=== PATIENT | male | born 1970 | race African-American/Black ===

== ENCOUNTER 2018-12-19 13:37 | Inpatient (IN) | payer OTHER ==
[2018-12-19 22:42] VITALS: BMI 34.0
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
[2018-12-19] MEDS ORDERED: MAGNESIUM HYDROX 2400MG/30ML ORAL SUSPENSION 30 ML CUP PO PRN (23:12)
[2018-12-19] MEDS ORDERED: MENTHOL/PHENOL 1 EACH UD MM PRN (23:12)
[2018-12-19] MEDS ORDERED: IBUPROFEN 400 MG TABLET (FP) PO PRN (23:12)
[2018-12-19] MEDS ORDERED: NICOTINE POLACRILEX 2 MG GUM BUC PRN (23:12)
[2018-12-19] MEDS ORDERED: guaiFENesin 200 MG/10 ML 10 ML UNIT-DOSE CUPS PO PRN (23:12)
[2018-12-19] MEDS ORDERED: LOPERAMIDE HCL 2 MG CAPSULE PO PRN (23:12)
[2018-12-19] MEDS ORDERED: MAGNESIUM CITRATE 300 ML BOTTLE PO PRN (23:12)
[2018-12-19] MEDS ORDERED: P-EPHED 60MG/TRIPROLIDI 2.5MG TABLET PO PRN (23:12)
[2018-12-20] MEDS ORDERED: TUBERCULIN PPD 5 TU/0.1ML VIAL ID ONE (00:36)
[2018-12-20] MEDS: MELATONIN 5 MG TABLETS PO PRN ×2 (00:50→21:17)
[2018-12-20] MEDS: ACETAMINOPHEN 325 MG TABLET (FP) PO PRN ×2 (00:50→21:17)
[2018-12-20] MEDS: metFORMIN HCL 500 MG TABLET (FP) PO SCH ×2 (06:13→16:53)
[2018-12-20] MEDS ORDERED: CHROMIUM PICOLINATE PO SCH (10:00)
[2018-12-20] MEDS ORDERED: [UNRECOGNIZED DRUG - OTHER] PO SCH (10:00)
[2018-12-20] MEDS ORDERED: ESOMEPRAZOLE STRONTIUM PO SCH (10:00)
[2018-12-20] MEDS ORDERED: MULTIPLE VITAMINS PO SCH (10:00)
[2018-12-20] MEDS ORDERED: INULIN PO SCH (10:00)
[2018-12-20] MEDS: PRENATAL VITAMINS W/ FOLIC ACID TABLET (FP) PO SCH (10:20)
[2018-12-20] MEDS: NICOTINE 21 MG/24 HOURS TOPICAL PATCH TD SCH (10:20)
--- NOTE | 2018-12-20 10:42 | EKG ---
Test Reason : Blood Pressure : / mmHG Vent. Rate : 066 BPM Atrial Rate : 066 BPM P-R Int : 180 ms QRS Dur : 104 ms QT Int : 402 ms P-R-T Axes : 061 -15 029 degrees QTc Int : 421 ms NORMAL SINUS RHYTHM WITH SINUS ARRHYTHMIA SEPTAL INFARCT , AGE UNDETERMINED ABNORMAL ECG NO PREVIOUS ECGS AVAILABLE Confirmed by TI WU, BRYAN ([id number]) on 12/20/2018 10:42:25 AM Referred By: MAURO SERNA Confirmed By:BRYAN LUKE MD
[2018-12-20 12:29] LABS: HEMATOCRIT 43.9 % (35.4-49); HEMOGLOBIN 14.5 GM/dL (11.7-16.9); MCH 29.3 pg (25.7-33.7); MEAN CELL VOLUME 88.5 fl (80-96); MEAN PLT VOLUME 8.8 fl (7.5-11.1); PLATELET COUNT 250 K/MM3 (134-434); RBC 4.95 M/mm3 (4.00-5.60); RDW 14.5 % (11.9-15.9)
[2018-12-20 12:35] LABS: ALBUMIN 3.6 g/dl (3.4-5.0); BILIRUBIN,TOTAL 0.5 mg/dL (0.2-1); BLOOD UREA NITROGEN 17.4 mg/dL (7-18); CREATININE 0.9 mg/dL (0.55-1.3); POTASSIUM 4.1 mmol/L (3.5-5.1); TOT PROT 6.3 g/dl (6.4-8.2)
--- NOTE | 2018-12-20 16:12 | PN ---
[facility] Progress Note Note: Pt admitted to rehab yesterday for jonny. C/o discomfort to right ear and wants to be checked. also wants claribel use his silicone ear plugs for noise reduction. Vital Signs - 24 hr 12/19/18 12/20/18 12/20/18 21:42 00:30 06:16 Temperature 98.2 F 97.8 F Pulse Rate 73 76 Respiratory 16 18 19 Rate Blood Pressure 137/92 127/75 12/20/18 06:30 Temperature Pulse Rate Respiratory 18 Rate Blood Pressure Ears exam:No redness or swelling, TMs intact A/P exam wnl Plan:pt may use own ear plugs as needed
[2018-12-20] MEDS: THIAMINE HCL 100 MG TABLET (FP) PO SCH (21:17)
[2018-12-20] MEDS: ATORVASTATIN CA 40 MG TABLET (FP) PO SCH (21:17)
[2018-12-20 21:55] LABS: PH,URINE 8.5 (5.0-8.0); URINE APPEARANCE CLEAR; URINE BILIRUBIN NEGATIVE (NEGATIVE); URINE COLOR YELLOW; URINE GLUCOSE (UA) NEGATIVE (NEGATIVE); URINE KETONE NEGATIVE (NEGATIVE); URINE LEUK ESTERASE NEGATIVE (NEGATIVE); URINE NITRITE NEGATIVE (NEGATIVE); URINE PROTEIN NEGATIVE (NEGATIVE); URINE UROBILINOGEN 0.2 mg/dL (0.2-1.0)
[2018-12-21] MEDS: metFORMIN HCL 500 MG TABLET (FP) PO SCH ×2 (06:31→16:57)
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
[2018-12-21] MEDS: ACETAMINOPHEN 325 MG TABLET (FP) PO PRN ×2 (09:25→21:23)
[2018-12-21] MEDS: NICOTINE 21 MG/24 HOURS TOPICAL PATCH TD SCH (09:26)
[2018-12-21] MEDS: PRENATAL VITAMINS W/ FOLIC ACID TABLET (FP) PO SCH (09:26)
[2018-12-21] MEDS: MELATONIN 5 MG TABLETS PO PRN (21:21)
[2018-12-21] MEDS: THIAMINE HCL 100 MG TABLET (FP) PO SCH (21:21)
[2018-12-21] MEDS: ATORVASTATIN CA 40 MG TABLET (FP) PO SCH (21:21)
[2018-12-22] MEDS: metFORMIN HCL 500 MG TABLET (FP) PO SCH ×2 (06:25→16:54)
[2018-12-22] MEDS: NICOTINE 21 MG/24 HOURS TOPICAL PATCH TD SCH (10:23)
[2018-12-22] MEDS: ACETAMINOPHEN 325 MG TABLET (FP) PO PRN (10:24)
[2018-12-22] MEDS: PRENATAL VITAMINS W/ FOLIC ACID TABLET (FP) PO SCH (10:24)
[2018-12-22] MEDS ORDERED: METHOCARBAMOL 500 MG TABLET PO PRN (11:43)
--- NOTE | 2018-12-22 13:24 | PN ---
[facility] Progress Note Note: Pt has a home Rx bottle of Naproxen 500 mg po daily as needed which he says he takes for his gout. Reports no allergy to Naproxen hut only got hives from ibuprofen. Pt requesting to restart his Naproxen as prescribed by his doctor. Discussed pt's request and findings with [email or web address] pharmacist, Flori marquez with patient in [place]. Pt reports he has a prescribing PMD, Dr. Manju Mayorga in [facility]. Ph#: on the medication bottle with 3 tablets of medication left in bottle. Rx was filled on 12/15/18 with #14 tablets at pharmacy. pt is alert o x 3. NAD. oob ambulating with steady gait and participating in unit groups and activities. Vital Signs - 24 hr 12/22/18 12/22/18 12/22/18 00:30 03:30 07:06 Temperature 97.8 F Pulse Rate 71 Respiratory 18 18 18 Rate Blood Pressure 124/84 12/22/18 10:00 Temperature Pulse Rate 86 Respiratory Rate Blood Pressure 124/68 Laboratory Tests 12/19/18 12/20/18 12/20/18 23:36 06:11 08:10 WBC 13.0 H RBC 4.95 Hgb 14.5 Hct 43.9 MCV 88.5 MCH 29.3 MCHC 33.0 RDW 14.5 Plt Count 250 MPV 8.8 Sodium Potassium Chloride Carbon Dioxide Anion Gap BUN Creatinine Est GFR (CKD-EPI)AfAm Est GFR (CKD-EPI)NonAf POC Glucometer 92 80 Random Glucose Calcium Total Bilirubin AST ALT Alkaline Phosphatase Total Protein Albumin Urine Color Urine Appearance Urine pH Ur Specific [place] Urine Protein Urine Glucose (UA) Urine Ketones Urine Blood Urine Nitrite Urine Bilirubin Urine Urobilinogen Ur Leukocyte Esterase RPR Titer Hep C Ab Diagnostic 12/20/18 12/20/18 12/20/18 08:10 08:10 08:10 WBC RBC Hgb Hct MCV MCH MCHC RDW Plt Count MPV Sodium 140 Potassium 4.1 Chloride 106 Carbon Dioxide 29 Anion Gap 6 L BUN 17.4 Creatinine 0.9 Est GFR (CKD-EPI)AfAm 116.65 Est GFR (CKD-EPI)NonAf 100.64 POC Glucometer Random Glucose 117 H Calcium 9.0 Total Bilirubin 0.5 AST 43 H ALT 76 H Alkaline Phosphatase 113 Total Protein 6.3 L Albumin 3.6 Urine Color Urine Appearance Urine pH Ur Specific [place]entry Urine Protein Urine Glucose (UA) Urine Ketones Urine Blood Urine Nitrite Urine Bilirubin Urine Urobilinogen Ur Leukocyte Esterase RPR Titer Nonreactive Hep C Ab Diagnostic <0.1 12/20/18 12/20/18 12/21/18 16:52 21:35 06:30 WBC RBC Hgb Hct MCV MCH MCHC RDW Plt Count MPV Sodium Potassium Chloride Carbon Dioxide Anion Gap BUN Creatinine Est GFR (CKD-EPI)AfAm Est GFR (CKD-EPI)NonAf POC Glucometer 79 106 Random Glucose Calcium Total Bilirubin AST ALT Alkaline Phosphatase Total Protein Albumin Urine Color Yellow Urine Appearance Clear Urine pH 8.5 H Ur Specific [place] 1.019 Urine Protein Negative Urine Glucose (UA) Negative Urine Ketones Negative Urine Blood Negative Urine Nitrite Negative Urine Bilirubin Negative Urine Urobilinogen 0.2 Ur Leukocyte Esterase Negative RPR Titer Hep C Ab Diagnostic 12/21/18 12/22/18 16:57 06:25 WBC RBC Hgb Hct MCV MCH MCHC RDW Plt Count MPV Sodium Potassium Chloride Carbon Dioxide Anion Gap BUN Creatinine Est GFR (CKD-EPI)AfAm Est GFR (CKD-EPI)NonAf POC Glucometer 93 94 Random Glucose Calcium Total Bilirubin AST ALT Alkaline Phosphatase Total Protein Albumin Urine Color Urine Appearance Urine pH Ur Specific [place]entry Urine Protein Urine Glucose (UA) Urine Ketones Urine Blood Urine Nitrite Urine Bilirubin Urine Urobilinogen Ur Leukocyte Esterase RPR Titer Hep C Ab Diagnostic A/P hx of Gout Restart Naproxen 500 mg po daily prn
[2018-12-22] MEDS ORDERED: METHOCARBAMOL 500 MG TABLET PO SCH (14:00)
[2018-12-22] MEDS: THIAMINE HCL 100 MG TABLET (FP) PO SCH (21:14)
[2018-12-22] MEDS: ATORVASTATIN CA 40 MG TABLET (FP) PO SCH (21:14)
[2018-12-22] MEDS: MELATONIN 5 MG TABLETS PO PRN (21:15)
[2018-12-22] MEDS: NAPROXEN 500 MG TABLET (FP) PO PRN (21:15)
[2018-12-23] MEDS: metFORMIN HCL 500 MG TABLET (FP) PO SCH ×2 (06:12→16:55)
[2018-12-23] MEDS: NAPROXEN 500 MG TABLET (FP) PO PRN (06:15)
[2018-12-23] MEDS: NICOTINE 21 MG/24 HOURS TOPICAL PATCH TD SCH (10:17)
[2018-12-23] MEDS: PRENATAL VITAMINS W/ FOLIC ACID TABLET (FP) PO SCH (10:17)
[2018-12-23] MEDS: MELATONIN 5 MG TABLETS PO PRN (21:14)
[2018-12-23] MEDS: THIAMINE HCL 100 MG TABLET (FP) PO SCH (21:14)
[2018-12-23] MEDS: ATORVASTATIN CA 40 MG TABLET (FP) PO SCH (21:14)
[2018-12-24] MEDS: metFORMIN HCL 500 MG TABLET (FP) PO SCH ×2 (06:09→17:32)
[2018-12-24] MEDS: NICOTINE 21 MG/24 HOURS TOPICAL PATCH TD SCH (09:57)
[2018-12-24] MEDS: NAPROXEN 500 MG TABLET (FP) PO PRN (09:58)
[2018-12-24] MEDS: PRENATAL VITAMINS W/ FOLIC ACID TABLET (FP) PO SCH (09:58)
[2018-12-24] MEDS: ACETAMINOPHEN 325 MG TABLET (FP) PO PRN ×2 (17:32→22:52)
[2018-12-24] MEDS: ATORVASTATIN CA 40 MG TABLET (FP) PO SCH (22:53)
[2018-12-24] MEDS: MELATONIN 5 MG TABLETS PO PRN (22:53)
[2018-12-24] MEDS: THIAMINE HCL 100 MG TABLET (FP) PO SCH (22:53)
[2018-12-25] MEDS: ACETAMINOPHEN 325 MG TABLET (FP) PO PRN (06:11)
[2018-12-25] MEDS: metFORMIN HCL 500 MG TABLET (FP) PO SCH ×2 (06:13→16:42)
[2018-12-25] MEDS: PRENATAL VITAMINS W/ FOLIC ACID TABLET (FP) PO SCH (10:27)
[2018-12-25] MEDS: NAPROXEN 500 MG TABLET (FP) PO PRN ×2 (10:30→22:05)
[2018-12-25] MEDS: NICOTINE 21 MG/24 HOURS TOPICAL PATCH TD SCH (10:30)
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
[2018-12-25] MEDS: THIAMINE HCL 100 MG TABLET (FP) PO SCH (21:21)
[2018-12-25] MEDS: ATORVASTATIN CA 40 MG TABLET (FP) PO SCH (21:21)
[2018-12-25] MEDS: MELATONIN 5 MG TABLETS PO PRN (21:22)
[2018-12-25] MEDS: BENZOCAINE 20 % GEL TUBE MM PRN (22:05)
[2018-12-26] MEDS: metFORMIN HCL 500 MG TABLET (FP) PO SCH ×2 (06:56→16:43)
[2018-12-26] MEDS: PRENATAL VITAMINS W/ FOLIC ACID TABLET (FP) PO SCH (10:29)
[2018-12-26] MEDS: NICOTINE 21 MG/24 HOURS TOPICAL PATCH TD SCH (10:29)
[2018-12-26] MEDS: NAPROXEN 500 MG TABLET (FP) PO PRN ×2 (10:30→21:31)
[2018-12-26] MEDS: THIAMINE HCL 100 MG TABLET (FP) PO SCH (21:31)
[2018-12-26] MEDS: MELATONIN 5 MG TABLETS PO PRN (21:31)
[2018-12-26] MEDS: ATORVASTATIN CA 40 MG TABLET (FP) PO SCH (21:31)
[2018-12-27] MEDS: BENZOCAINE 20 % GEL TUBE MM PRN (04:07)
[2018-12-27] MEDS: metFORMIN HCL 500 MG TABLET (FP) PO SCH ×2 (07:25→16:41)
[2018-12-27] MEDS: NICOTINE 21 MG/24 HOURS TOPICAL PATCH TD SCH (10:08)
[2018-12-27] MEDS: PRENATAL VITAMINS W/ FOLIC ACID TABLET (FP) PO SCH (10:08)
[2018-12-27] MEDS: NAPROXEN 500 MG TABLET (FP) PO PRN ×2 (10:09→21:24)
[2018-12-27] MEDS: ATORVASTATIN CA 40 MG TABLET (FP) PO SCH (21:24)
[2018-12-27] MEDS: MELATONIN 5 MG TABLETS PO PRN (21:24)
[2018-12-27] MEDS: THIAMINE HCL 100 MG TABLET (FP) PO SCH (21:24)
[2018-12-28] MEDS: ACETAMINOPHEN 325 MG TABLET (FP) PO PRN ×3 (01:33→19:02)
[2018-12-28] MEDS: metFORMIN HCL 500 MG TABLET (FP) PO SCH ×2 (06:10→16:36)
[2018-12-28] MEDS: NICOTINE 21 MG/24 HOURS TOPICAL PATCH TD SCH (10:06)
[2018-12-28] MEDS: PRENATAL VITAMINS W/ FOLIC ACID TABLET (FP) PO SCH (10:06)
[2018-12-28] MEDS: NAPROXEN 500 MG TABLET (FP) PO PRN ×2 (10:07→21:26)
[2018-12-28] MEDS: MAG HYDROX/AL HYDROX/SIMETH 30 ML UNIT-DOSE CUP PO PRN (19:01)
[2018-12-28] MEDS: THIAMINE HCL 100 MG TABLET (FP) PO SCH (21:26)
[2018-12-28] MEDS: ATORVASTATIN CA 40 MG TABLET (FP) PO SCH (21:26)
[2018-12-28] MEDS: MELATONIN 5 MG TABLETS PO PRN (21:27)
[2018-12-29] MEDS: metFORMIN HCL 500 MG TABLET (FP) PO SCH ×2 (06:30→16:44)
[2018-12-29] MEDS: ACETAMINOPHEN 325 MG TABLET (FP) PO PRN (06:31)
[2018-12-29] MEDS: NICOTINE 21 MG/24 HOURS TOPICAL PATCH TD SCH (10:41)
[2018-12-29] MEDS: NAPROXEN 500 MG TABLET (FP) PO PRN ×2 (10:42→21:25)
[2018-12-29] MEDS: PRENATAL VITAMINS W/ FOLIC ACID TABLET (FP) PO SCH (10:42)
[2018-12-29] MEDS: ATORVASTATIN CA 40 MG TABLET (FP) PO SCH (21:24)
[2018-12-29] MEDS: THIAMINE HCL 100 MG TABLET (FP) PO SCH (21:24)
--- NOTE | 2018-12-30 03:35 | PN ---
[facility] Progress Note Note: ASKED TO SEE PATIENT FOR BROKEN EAR PLUGS IN BOTH EARS. CLIENT C/O ELY SHOSHONE DUE TO HAVING PIECES OF EAR PLUGS STILL IN HIS EAR AFTER ATTEMPTING TO PULL THEM OUT A FEW MINUTES AGO. CLIENT SHOWS PROVIDER 2 PIECES OF WHITE JELL LIKE OBJECTS FROM WHAT WAS PULLED OUT. DENIES PAIN, HEADACHE, DIZZINESS. CLIENT IS AWAKE/ ALERT NAD EARS- BOTH EARS NOTED WITH SOFT WHITE JELL LIKE SUBSTANCE ( C/W WHAT CLIENT PRESENTED TO OUTPATIENT DIETITIAN) OCCLUDING BOTH CANALS A/P FOREIGN OBJECT TO BOTH EAR CANALS CASE D/W DR. CHANDRA FROM [facility] TRANSFER CLIENT TO [facility]
[2018-12-30] MEDS: ACETAMINOPHEN 325 MG TABLET (FP) PO PRN (07:21)
[2018-12-30] MEDS: metFORMIN HCL 500 MG TABLET (FP) PO SCH ×2 (07:23→16:38)
[2018-12-30] MEDS: NICOTINE 21 MG/24 HOURS TOPICAL PATCH TD SCH (10:13)
[2018-12-30] MEDS: PRENATAL VITAMINS W/ FOLIC ACID TABLET (FP) PO SCH (10:13)
[2018-12-30] MEDS: NAPROXEN 500 MG TABLET (FP) PO PRN ×2 (10:14→21:28)
[2018-12-30] MEDS: MAG HYDROX/AL HYDROX/SIMETH 30 ML UNIT-DOSE CUP PO PRN (12:20)
[2018-12-30] MEDS: THIAMINE HCL 100 MG TABLET (FP) PO SCH (21:27)
[2018-12-30] MEDS: ATORVASTATIN CA 40 MG TABLET (FP) PO SCH (21:27)
[2018-12-31] MEDS: ACETAMINOPHEN 325 MG TABLET (FP) PO PRN (06:26)
[2018-12-31] MEDS: metFORMIN HCL 500 MG TABLET (FP) PO SCH ×2 (06:27→16:52)
[2018-12-31] MEDS: PRENATAL VITAMINS W/ FOLIC ACID TABLET (FP) PO SCH (10:15)
[2018-12-31] MEDS: NAPROXEN 500 MG TABLET (FP) PO PRN ×2 (10:16→21:12)
[2018-12-31] MEDS: NICOTINE 21 MG/24 HOURS TOPICAL PATCH TD SCH (10:16)
[2018-12-31] MEDS: ATORVASTATIN CA 40 MG TABLET (FP) PO SCH (21:11)
[2018-12-31] MEDS: THIAMINE HCL 100 MG TABLET (FP) PO SCH (21:11)
[2019-01-01] MEDS: metFORMIN HCL 500 MG TABLET (FP) PO SCH ×2 (07:14→16:41)
[2019-01-01] MEDS: PRENATAL VITAMINS W/ FOLIC ACID TABLET (FP) PO SCH (10:04)
[2019-01-01] MEDS: NICOTINE 21 MG/24 HOURS TOPICAL PATCH TD SCH (10:04)
[2019-01-01] MEDS: NAPROXEN 500 MG TABLET (FP) PO PRN ×2 (10:04→21:24)
--- NOTE | 2019-01-01 11:45 | PN ---
[facility] Progress Note Note: This ticket writer followed up with the Esther Barrera recommendation for patient to follow up care with ENT at Singh Estrada MD [address] , [place], [place] but unable to make appointment with practice due to pt's insurance not accepted. Pt was taken to the Er for removal of foreign object from both ears but has been recommended upon discharge to follow up with ENT for total removal of any pieces that might be left in. Pt reports he had inserted the plugs wrongly stating " "it is my fault. I was putting them in the canal in a wrong way. Now i know how". Pt states he is able to follow up by himself after discharge from rehab at [facility]. Pt states he has no symptoms of hearing deficits, buzzing,ringing,pain, dizziness, nausea,or any discomfort at this time. Pt responding to calls and communicating normally without hearing difficulty. Vital Signs - 24 hr 01/01/19 01/01/19 01/01/19 00:30 03:30 06:52 Temperature 98.1 F Pulse Rate 68 Respiratory 18 18 20 Rate Blood Pressure 129/88 Oob ambulating with steady gait Nad A/P Foreign Object in Ears D/w pt the need to follow up with ENT per Esther recommendation. App[facility] be made with: [facility] [address] [place] [address]
[2019-01-01] MEDS: ACETAMINOPHEN 325 MG TABLET (FP) PO PRN (17:20)
[2019-01-01] MEDS: MELATONIN 5 MG TABLETS PO PRN (21:24)
[2019-01-01] MEDS: THIAMINE HCL 100 MG TABLET (FP) PO SCH (21:24)
[2019-01-01] MEDS: ATORVASTATIN CA 40 MG TABLET (FP) PO SCH (21:24)
[2019-01-02] MEDS: ACETAMINOPHEN 325 MG TABLET (FP) PO PRN ×3 (03:14→16:48)
[2019-01-02] MEDS: metFORMIN HCL 500 MG TABLET (FP) PO SCH ×2 (06:57→16:47)
[2019-01-02] MEDS: NAPROXEN 500 MG TABLET (FP) PO PRN ×2 (11:01→21:21)
[2019-01-02] MEDS: PRENATAL VITAMINS W/ FOLIC ACID TABLET (FP) PO SCH (11:01)
[2019-01-02] MEDS: NICOTINE 21 MG/24 HOURS TOPICAL PATCH TD SCH (11:01)
[2019-01-02] MEDS: ATORVASTATIN CA 40 MG TABLET (FP) PO SCH (21:21)
[2019-01-02] MEDS: THIAMINE HCL 100 MG TABLET (FP) PO SCH (21:22)
[2019-01-02] MEDS: MELATONIN 5 MG TABLETS PO PRN (21:22)
[2019-01-03] MEDS: ACETAMINOPHEN 325 MG TABLET (FP) PO PRN (05:36)
[2019-01-03] MEDS: metFORMIN HCL 500 MG TABLET (FP) PO SCH ×2 (06:32→16:29)
[2019-01-03] MEDS: PRENATAL VITAMINS W/ FOLIC ACID TABLET (FP) PO SCH (10:06)
[2019-01-03] MEDS: NICOTINE 21 MG/24 HOURS TOPICAL PATCH TD SCH (10:06)
[2019-01-03] MEDS: NAPROXEN 500 MG TABLET (FP) PO PRN ×2 (10:06→21:21)
[2019-01-03] MEDS: ATORVASTATIN CA 40 MG TABLET (FP) PO SCH (21:21)
[2019-01-03] MEDS: THIAMINE HCL 100 MG TABLET (FP) PO SCH (21:21)
[2019-01-03] MEDS: MELATONIN 5 MG TABLETS PO PRN (21:22)
[2019-01-04] MEDS: metFORMIN HCL 500 MG TABLET (FP) PO SCH ×2 (06:12→16:27)
[2019-01-04] MEDS: PRENATAL VITAMINS W/ FOLIC ACID TABLET (FP) PO SCH (10:05)
[2019-01-04] MEDS: NICOTINE 21 MG/24 HOURS TOPICAL PATCH TD SCH (10:05)
[2019-01-04] MEDS: NAPROXEN 500 MG TABLET (FP) PO PRN ×2 (10:05→21:16)
[2019-01-04] MEDS: ATORVASTATIN CA 40 MG TABLET (FP) PO SCH (21:15)
[2019-01-04] MEDS: THIAMINE HCL 100 MG TABLET (FP) PO SCH (21:15)
[2019-01-04] MEDS: MELATONIN 5 MG TABLETS PO PRN (21:15)
[2019-01-05] MEDS: metFORMIN HCL 500 MG TABLET (FP) PO SCH ×2 (06:11→16:49)
[2019-01-05] MEDS: NAPROXEN 500 MG TABLET (FP) PO PRN ×2 (10:17→21:21)
[2019-01-05] MEDS: PRENATAL VITAMINS W/ FOLIC ACID TABLET (FP) PO SCH (10:17)
[2019-01-05] MEDS: NICOTINE 14 MG/24 HOURS TOPICAL PATCH TD SCH (10:18)
[2019-01-05] MEDS: ATORVASTATIN CA 40 MG TABLET (FP) PO SCH (21:20)
[2019-01-05] MEDS: MELATONIN 5 MG TABLETS PO PRN (21:21)
[2019-01-05] MEDS: THIAMINE HCL 100 MG TABLET (FP) PO SCH (21:21)
[2019-01-06] MEDS: metFORMIN HCL 500 MG TABLET (FP) PO SCH ×2 (06:35→16:43)
[2019-01-06] MEDS: PRENATAL VITAMINS W/ FOLIC ACID TABLET (FP) PO SCH (10:48)
[2019-01-06] MEDS: NICOTINE 14 MG/24 HOURS TOPICAL PATCH TD SCH (10:48)
[2019-01-06] MEDS: NAPROXEN 500 MG TABLET (FP) PO PRN ×2 (10:49→21:45)
[2019-01-06] MEDS: THIAMINE HCL 100 MG TABLET (FP) PO SCH (21:43)
[2019-01-06] MEDS: MELATONIN 5 MG TABLETS PO PRN (21:44)
[2019-01-06] MEDS: ATORVASTATIN CA 40 MG TABLET (FP) PO SCH (21:46)
[2019-01-07] MEDS: ACETAMINOPHEN 325 MG TABLET (FP) PO PRN ×3 (02:47→19:55)
[2019-01-07] MEDS: metFORMIN HCL 500 MG TABLET (FP) PO SCH ×2 (06:25→16:51)
[2019-01-07] MEDS: PRENATAL VITAMINS W/ FOLIC ACID TABLET (FP) PO SCH (09:55)
[2019-01-07] MEDS: NICOTINE 14 MG/24 HOURS TOPICAL PATCH TD SCH (09:55)
[2019-01-07] MEDS: NAPROXEN 500 MG TABLET (FP) PO PRN ×2 (09:57→21:30)
[2019-01-07] MEDS: THIAMINE HCL 100 MG TABLET (FP) PO SCH (21:29)
[2019-01-07] MEDS: ATORVASTATIN CA 40 MG TABLET (FP) PO SCH (21:29)
[2019-01-07] MEDS: MELATONIN 5 MG TABLETS PO PRN (21:29)
[2019-01-08] MEDS: ACETAMINOPHEN 325 MG TABLET (FP) PO PRN (05:46)
[2019-01-08] MEDS: metFORMIN HCL 500 MG TABLET (FP) PO SCH ×2 (06:59→16:41)
[2019-01-08] MEDS: PRENATAL VITAMINS W/ FOLIC ACID TABLET (FP) PO SCH (10:00)
[2019-01-08] MEDS: NAPROXEN 500 MG TABLET (FP) PO PRN ×2 (10:00→21:16)
[2019-01-08] MEDS: NICOTINE 14 MG/24 HOURS TOPICAL PATCH TD SCH (10:00)
[2019-01-08] MEDS: THIAMINE HCL 100 MG TABLET (FP) PO SCH (21:16)
[2019-01-08] MEDS: ATORVASTATIN CA 40 MG TABLET (FP) PO SCH (21:16)
[2019-01-08] MEDS: MELATONIN 5 MG TABLETS PO PRN (21:16)
[2019-01-09] MEDS: metFORMIN HCL 500 MG TABLET (FP) PO SCH ×2 (06:30→16:45)
[2019-01-09] MEDS: PRENATAL VITAMINS W/ FOLIC ACID TABLET (FP) PO SCH (10:11)
[2019-01-09] MEDS: NICOTINE 14 MG/24 HOURS TOPICAL PATCH TD SCH (10:11)
[2019-01-09] MEDS: NAPROXEN 500 MG TABLET (FP) PO PRN ×2 (10:11→21:15)
[2019-01-09] MEDS: ATORVASTATIN CA 40 MG TABLET (FP) PO SCH (21:13)
[2019-01-09] MEDS: MELATONIN 5 MG TABLETS PO PRN (21:13)
[2019-01-09] MEDS: THIAMINE HCL 100 MG TABLET (FP) PO SCH (21:13)
[2019-01-10] MEDS: metFORMIN HCL 500 MG TABLET (FP) PO SCH ×2 (06:08→16:50)
[2019-01-10] MEDS: NAPROXEN 500 MG TABLET (FP) PO PRN ×2 (10:27→21:20)
[2019-01-10] MEDS: PRENATAL VITAMINS W/ FOLIC ACID TABLET (FP) PO SCH (10:27)
[2019-01-10] MEDS ORDERED: NICOTINE 7 MG/24 HOURS TOPICAL PATCH TD ONE (11:00)
[2019-01-10] MEDS: NICOTINE 14 MG/24 HOURS TOPICAL PATCH TD SCH (13:06)
--- NOTE | 2019-01-10 15:35 | DS ---
[facility] Rehab Discharge Summary - [facility] Rehab Discharge Summary Admission Date: 12/19/18 Discharge Date: 01/11/19 - History Present History: Cannabis dependence, Cocaine dependence Additional Comments: Pt is a 48 y/o male with a hx of cocaine dependence admitted to rehab. Pt requests early discharge tomorrow to follow up with his primary care appointment on Tuesday01/12/19. Pt is referred to [facility] for CD aftercare and will follow up after discharge. Pt has appointments schedule with PCP ans ENT and has been reminded to follow up after discharge. Pertinent Past History: DM HLD GERD(no med) Gout Hyperlipidemia Chronic Constipation - Discharge Physical Exam Vital Signs: Vital Signs Temperature 98.0 F 01/10/19 06:55 Pulse Rate 100 H 01/10/19 06:55 Respiratory Rate 18 01/10/19 06:55 Blood Pressure 118/61 01/10/19 06:55 O2 Sat by Pulse Oximetry (%) Alert o x 3 nad oob ambulating with steady gait cardiac:s1 s2,rrr Lungs:cta,richelle. Abdomen:+bs,+fatty,nt,nd Extremities/Skin:no edema,Full ROM, skin intact Pertinent Admission Physical Exam Findings: Laboratory Tests 12/19/18 12/20/18 12/20/18 23:36 06:11 08:10 WBC 13.0 H RBC 4.95 Hgb 14.5 Hct 43.9 MCV 88.5 MCH 29.3 MCHC 33.0 RDW 14.5 Plt Count 250 MPV 8.8 Sodium Potassium Chloride Carbon Dioxide Anion Gap BUN Creatinine Est GFR (CKD-EPI)AfAm Est GFR (CKD-EPI)NonAf POC Glucometer 92 80 Random Glucose Calcium Total Bilirubin AST ALT Alkaline Phosphatase Total Protein Albumin Urine Color Urine Appearance Urine pH Ur Specific [place] Urine Protein Urine Glucose (UA) Urine Ketones Urine Blood Urine Nitrite Urine Bilirubin Urine Urobilinogen Ur Leukocyte Esterase RPR Titer Hep C Ab Diagnostic 12/20/18 12/20/18 12/20/18 08:10 08:10 08:10 WBC RBC Hgb Hct MCV MCH MCHC RDW Plt Count MPV Sodium 140 Potassium 4.1 Chloride 106 Carbon Dioxide 29 Anion Gap 6 L BUN 17.4 Creatinine 0.9 Est GFR (CKD-EPI)AfAm 116.65 Est GFR (CKD-EPI)NonAf 100.64 POC Glucometer Random Glucose 117 H Calcium 9.0 Total Bilirubin 0.5 AST 43 H ALT 76 H Alkaline Phosphatase 113 Total Protein 6.3 L Albumin 3.6 Urine Color Urine Appearance Urine pH Ur Specific [place] Urine Protein Urine Glucose (UA) Urine Ketones Urine Blood Urine Nitrite Urine Bilirubin Urine Urobilinogen Ur Leukocyte Esterase RPR Titer Nonreactive Hep C Ab Diagnostic <0.1 12/20/18 12/20/18 12/21/18 16:52 21:35 06:30 WBC RBC Hgb Hct MCV MCH MCHC RDW Plt Count MPV Sodium Potassium Chloride Carbon Dioxide Anion Gap BUN Creatinine Est GFR (CKD-EPI)AfAm Est GFR (CKD-EPI)NonAf POC Glucometer 79 106 Random Glucose Calcium Total Bilirubin AST ALT Alkaline Phosphatase Total Protein Albumin Urine Color Yellow Urine Appearance Clear Urine pH 8.5 H Ur Specific [place] 1.019 Urine Protein Negative Urine Glucose (UA) Negative Urine Ketones Negative Urine Blood Negative Urine Nitrite Negative Urine Bilirubin Negative Urine Urobilinogen 0.2 Ur Leukocyte Esterase Negative RPR Titer Hep C Ab Diagnostic 12/21/18 12/22/18 12/22/18 16:57 06:25 16:53 WBC RBC Hgb Hct MCV MCH MCHC RDW Plt Count MPV Sodium Potassium Chloride Carbon Dioxide Anion Gap BUN Creatinine Est GFR (CKD-EPI)AfAm Est GFR (CKD-EPI)NonAf POC Glucometer 93 94 98 Random Glucose Calcium Total Bilirubin AST ALT Alkaline Phosphatase Total Protein Albumin Urine Color Urine Appearance Urine pH Ur Specific [place] Urine Protein Urine Glucose (UA) Urine Ketones Urine Blood Urine Nitrite Urine Bilirubin Urine Urobilinogen Ur Leukocyte Esterase RPR Titer Hep C Ab Diagnostic 12/23/18 12/23/18 12/24/18 06:11 16:56 06:08 WBC RBC Hgb Hct MCV MCH MCHC RDW Plt Count MPV Sodium Potassium Chloride Carbon Dioxide Anion Gap BUN Creatinine Est GFR (CKD-EPI)AfAm Est GFR (CKD-EPI)NonAf POC Glucometer 105 102 114 Random Glucose Calcium Total Bilirubin AST ALT Alkaline Phosphatase Total Protein Albumin Urine Color Urine Appearance Urine pH Ur Specific [place] Urine Protein Urine Glucose (UA) Urine Ketones Urine Blood Urine Nitrite Urine Bilirubin Urine Urobilinogen Ur Leukocyte Esterase RPR Titer Hep C Ab Diagnostic 12/24/18 12/25/18 12/25/18 17:29 06:10 16:44 WBC RBC Hgb Hct MCV MCH MCHC RDW Plt Count MPV Sodium Potassium Chloride Carbon Dioxide Anion Gap BUN Creatinine Est GFR (CKD-EPI)AfAm Est GFR (CKD-EPI)NonAf POC Glucometer 114 103 102 Random Glucose Calcium Total Bilirubin AST ALT Alkaline Phosphatase Total Protein Albumin Urine Color Urine Appearance Urine pH Ur Specific [place] Urine Protein Urine Glucose (UA) Urine Ketones Urine Blood Urine Nitrite Urine Bilirubin Urine Urobilinogen Ur Leukocyte Esterase RPR Titer Hep C Ab Diagnostic 12/26/18 12/26/18 12/27/18 06:54 16:41 06:12 WBC RBC Hgb Hct MCV MCH MCHC RDW Plt Count MPV Sodium Potassium Chloride Carbon Dioxide Anion Gap BUN Creatinine Est GFR (CKD-EPI)AfAm Est GFR (CKD-EPI)NonAf POC Glucometer 84 85 102 Random Glucose Calcium Total Bilirubin AST ALT Alkaline Phosphatase Total Protein Albumin Urine Color Urine Appearance Urine pH Ur Specific [place] Urine Protein Urine Glucose (UA) Urine Ketones Urine Blood Urine Nitrite Urine Bilirubin Urine Urobilinogen Ur Leukocyte Esterase RPR Titer Hep C Ab Diagnostic 12/27/18 12/28/18 12/28/18 16:40 06:09 16:37 WBC RBC Hgb Hct MCV MCH MCHC RDW Plt Count MPV Sodium Potassium Chloride Carbon Dioxide Anion Gap BUN Creatinine Est GFR (CKD-EPI)AfAm Est GFR (CKD-EPI)NonAf POC Glucometer 70 97 79 Random Glucose Calcium Total Bilirubin AST ALT Alkaline Phosphatase Total Protein Albumin Urine Color Urine Appearance Urine pH Ur Specific [place] Urine Protein Urine Glucose (UA) Urine Ketones Urine Blood Urine Nitrite Urine Bilirubin Urine Urobilinogen Ur Leukocyte Esterase RPR Titer Hep C Ab Diagnostic 12/29/18 12/29/18 12/30/18 06:28 16:43 07:19 WBC RBC Hgb Hct MCV MCH MCHC RDW Plt Count MPV Sodium Potassium Chloride Carbon Dioxide Anion Gap BUN Creatinine Est GFR (CKD-EPI)AfAm Est GFR (CKD-EPI)NonAf POC Glucometer 88 89 95 Random Glucose Calcium Total Bilirubin AST ALT Alkaline Phosphatase Total Protein Albumin Urine Color Urine Appearance Urine pH Ur Specific [place] Urine Protein Urine Glucose (UA) Urine Ketones Urine Blood Urine Nitrite Urine Bilirubin Urine Urobilinogen Ur Leukocyte Esterase RPR Titer Hep C Ab Diagnostic 12/30/18 12/31/18 12/31/18 16:37 06:25 16:51 WBC RBC Hgb Hct MCV MCH MCHC RDW Plt Count MPV Sodium Potassium Chloride Carbon Dioxide Anion Gap BUN Creatinine Est GFR (CKD-EPI)AfAm Est GFR (CKD-EPI)NonAf POC Glucometer 74 96 76 Random Glucose Calcium Total Bilirubin AST ALT Alkaline Phosphatase Total Protein Albumin Urine Color Urine Appearance Urine pH Ur Specific [place] Urine Protein Urine Glucose (UA) Urine Ketones Urine Blood Urine Nitrite Urine Bilirubin Urine Urobilinogen Ur Leukocyte Esterase RPR Titer Hep C Ab Diagnostic 01/01/19 01/01/19 01/02/19 07:14 16:41 06:20 WBC RBC Hgb Hct MCV MCH MCHC RDW Plt Count MPV Sodium Potassium Chloride Carbon Dioxide Anion Gap BUN Creatinine Est GFR (CKD-EPI)AfAm Est GFR (CKD-EPI)NonAf POC Glucometer 108 124 94 Random Glucose Calcium Total Bilirubin AST ALT Alkaline Phosphatase Total Protein Albumin Urine Color Urine Appearance Urine pH Ur Specific [place] Urine Protein Urine Glucose (UA) Urine Ketones Urine Blood Urine Nitrite Urine Bilirubin Urine Urobilinogen Ur Leukocyte Esterase RPR Titer Hep C Ab Diagnostic 01/02/19 01/03/19 01/03/19 16:31 05:34 16:29 WBC RBC Hgb Hct MCV MCH MCHC RDW Plt Count MPV Sodium Potassium Chloride Carbon Dioxide Anion Gap BUN Creatinine Est GFR (CKD-EPI)AfAm Est GFR (CKD-EPI)NonAf POC Glucometer 101 82 109 Random Glucose Calcium Total Bilirubin AST ALT Alkaline Phosphatase Total Protein Albumin Urine Color Urine Appearance Urine pH Ur Specific [place] Urine Protein Urine Glucose (UA) Urine Ketones Urine Blood Urine Nitrite Urine Bilirubin Urine Urobilinogen Ur Leukocyte Esterase RPR Titer Hep C Ab Diagnostic 01/04/19 01/04/19 01/05/19 06:11 16:27 06:10 WBC RBC Hgb Hct MCV MCH MCHC RDW Plt Count MPV Sodium Potassium Chloride Carbon Dioxide Anion Gap BUN Creatinine Est GFR (CKD-EPI)AfAm Est GFR (CKD-EPI)NonAf POC Glucometer 101 136 97 Random Glucose Calcium Total Bilirubin AST ALT Alkaline Phosphatase Total Protein Albumin Urine Color Urine Appearance Urine pH Ur Specific [place] Urine Protein Urine Glucose (UA) Urine Ketones Urine Blood Urine Nitrite Urine Bilirubin Urine Urobilinogen Ur Leukocyte Esterase RPR Titer Hep C Ab Diagnostic 01/05/19 01/06/19 01/06/19 16:49 05:53 16:42 WBC RBC Hgb Hct MCV MCH MCHC RDW Plt Count MPV Sodium Potassium Chloride Carbon Dioxide Anion Gap BUN Creatinine Est GFR (CKD-EPI)AfAm Est GFR (CKD-EPI)NonAf POC Glucometer 94 96 73 Random Glucose Calcium Total Bilirubin AST ALT Alkaline Phosphatase Total Protein Albumin Urine Color Urine Appearance Urine pH Ur Specific [place] Urine Protein Urine Glucose (UA) Urine Ketones Urine Blood Urine Nitrite Urine Bilirubin Urine Urobilinogen Ur Leukocyte Esterase RPR Titer Hep C Ab Diagnostic 01/07/19 01/07/19 01/08/19 06:24 16:26 05:45 WBC RBC Hgb Hct MCV MCH MCHC RDW Plt Count MPV Sodium Potassium Chloride Carbon Dioxide Anion Gap BUN Creatinine Est GFR (CKD-EPI)AfAm Est GFR (CKD-EPI)NonAf POC Glucometer 106 125 98 Random Glucose Calcium Total Bilirubin AST ALT Alkaline Phosphatase Total Protein Albumin Urine Color Urine Appearance Urine pH Ur Specific [place] Urine Protein Urine Glucose (UA) Urine Ketones Urine Blood Urine Nitrite Urine Bilirubin Urine Urobilinogen Ur Leukocyte Esterase RPR Titer Hep C Ab Diagnostic 01/08/19 01/09/19 01/09/19 16:40 06:30 16:43 WBC RBC Hgb Hct MCV MCH MCHC RDW Plt Count MPV Sodium Potassium Chloride Carbon Dioxide Anion Gap BUN Creatinine Est GFR (CKD-EPI)AfAm Est GFR (CKD-EPI)NonAf POC Glucometer 98 98 116 Random Glucose Calcium Total Bilirubin AST ALT Alkaline Phosphatase Total Protein Albumin Urine Color Urine Appearance Urine pH Ur Specific [place] Urine Protein Urine Glucose (UA) Urine Ketones Urine Blood Urine Nitrite Urine Bilirubin Urine Urobilinogen Ur Leukocyte Esterase RPR Titer Hep C Ab Diagnostic 01/10/19 01/10/19 01/11/19 06:06 16:50 05:59 WBC RBC Hgb Hct MCV MCH MCHC RDW Plt Count MPV Sodium Potassium Chloride Carbon Dioxide Anion Gap BUN Creatinine Est GFR (CKD-EPI)AfAm Est GFR (CKD-EPI)NonAf POC Glucometer 113 119 106 Random Glucose Calcium Total Bilirubin AST ALT Alkaline Phosphatase Total Protein Albumin Urine Color Urine Appearance Urine pH Ur Specific [place] Urine Protein Urine Glucose (UA) Urine Ketones Urine Blood Urine Nitrite Urine Bilirubin Urine Urobilinogen Ur Leukocyte Esterase RPR Titer Hep C Ab Diagnostic - Treatment Discharge Condition: Discharge condition good Hospital Course: Rehabilitated safely and responded well CD aftercare referral accepted - Medication Discharge Medications: Ambulatory Orders Acetaminophen 1 tablet PO Q4HWA PRN 12/19/18 Atorvastatin Ca [Lipitor] 40 mg PO HS 12/19/18 Metformin HCl [Glucophage] 1,000 mg PO BID 12/19/18 Multiple Vitamins 1 tablet PO DAILY 12/19/18 Naproxen [Naprosyn] 500 mg PO DAILY 12/19/18 Polyethylene Glycol 3350 [Miralax 255 gm Btl -] 1 packet PO DAILY 12/19/18 - Medication-Assisted Treatment (MAT) Medication-Assisted Treatment (MAT): No - Discharge Instructions Diet, activity, other medical instructions: Diet:NCS Activity: oob ad alan Other medical instructions:Follow up with CD aftercare at [facility] as recommended. Follow up with your primary care provider, Dr. Manju Mayorga and ENT at locations below as scheduled. D/w pt the need to follow up with ENT per Esther SCHNEIDER recommendation. Appointment made with: [facility] [address] [place] [address] Date:01/16/19 @ 9:15 a.m Pt has a PMD Dr. Manju Mayorga @ [place], [place] Primary Care Appointment made on 01/12/19 @ 3:15 pm. - Diagnosis (1) Constipation Current Visit: Yes Status: Chronic Qualifiers: Constipation type: slow transit constipation Qualified Code(s): K59.01 - Slow transit constipation (2) GERD (gastroesophageal reflux disease) Current Visit: Yes Status: Inactive Qualifiers: Esophagitis presence: esophagitis presence not specified Qualified Code(s) : K21.9 - Gastro-esophageal reflux disease without esophagitis (3) Gout Current Visit: Yes Status: Chronic Qualifiers: Gout site: foot Laterality: right (4) Nicotine dependence Current Visit: Yes Status: Acute (5) Cocaine dependence Current Visit: Yes Status: Chronic Qualifiers: Substance use status: uncomplicated Qualified Code(s): F14.20 - Cocaine dependence, uncomplicated (6) DM type 2 (diabetes mellitus, type 2) Current Visit: Yes Status: Chronic (7) Hyperlipidemia Current Visit: Yes Status: Chronic Qualifiers: Hyperlipidemia type: unspecified Qualified Code(s): E78.5 - Hyperlipidemia , unspecified (8) Marijuana dependence Current Visit: Yes Status: Chronic (9) Foreign body in ear, bilateral Current Visit: Yes Status: Acute Qualifiers: Encounter type: initial encounter Qualified Code(s): T16.1XXA - Foreign body in right ear, initial encounter; T16.2XXA - Foreign body in left ear, initial encounter - Follow-up Referral Minutes to complete discharge: 25 - AMA Did Patient Leave Against Medical Advice: No Additional Comments: Pt has own meds and states does not nee courtesy Rx sent to his pharmacy from here.
[2019-01-10] MEDS: MELATONIN 5 MG TABLETS PO PRN (21:20)
[2019-01-10] MEDS: THIAMINE HCL 100 MG TABLET (FP) PO SCH (21:20)
[2019-01-10] MEDS: ATORVASTATIN CA 40 MG TABLET (FP) PO SCH (21:20)
[2019-01-11 06:49] VITALS: BP 125/74; PULSE 79; TEMP 98.1
[2019-01-11] MEDS: metFORMIN HCL 500 MG TABLET (FP) PO SCH (07:56)
[2019-01-11] MEDS: PRENATAL VITAMINS W/ FOLIC ACID TABLET (FP) PO SCH (09:53)
[2019-01-11] MEDS: NAPROXEN 500 MG TABLET (FP) PO PRN (09:54)
[2019-01-11] MEDS ORDERED: NICOTINE 7 MG/24 HOURS TOPICAL PATCH TD SCH (10:00)
[2019-01-11] MEDS ORDERED: NICOTINE 14 MG/24 HOURS TOPICAL PATCH TD SCH (10:00)
--- NOTE | 2019-01-11 11:19 | PN ---
S Progress Note Note: pt was discharged today(see discharge summary) as scheduled. alert o x 3. NAD. Oob ambulating with steady gait. denies s/h/i. Reminded to follow up with scheduled appointments. Vital Signs - 24 hr 01/11/19 01/11/19 03:30 06:49 Temperature 98.1 F Pulse Rate 79 Respiratory 18 18 Rate Blood Pressure 125/74
== END 2019-01-11 10:30 | disposition home or self-care (01) | DRG 772 ==
LOC: YASAS 13:37 → Y5N 21:43
PROVIDERS: ADMIT Neuromusculoskeletal Medicine & OMM; ATTEND Neuromusculoskeletal Medicine & OMM
PROC: HZ42ZZZ Group Counseling for Substance Abuse Treatment, Cognitive-Behavioral (ICD-10-PCS; principal; 2018-12-19)
DX: F14.20 Cocaine dependence, uncomplicated (principal); F12.20 Cannabis dependence, uncomplicated; F32.9 Major depressive disorder, single episode, unspecified; E78.5 Hyperlipidemia, unspecified; E11.9 Type 2 diabetes mellitus without complications; K21.9 Gastro-esophageal reflux disease without esophagitis; M10.9 Gout, unspecified; K59.04 Chronic idiopathic constipation; T16.2XXA Foreign body in left ear, initial encounter; T16.1XXA Foreign body in right ear, initial encounter; X58.XXXA Exposure to other specified factors, initial encounter; Y93.89 Activity, other specified; Y92.89 Other specified places as the place of occurrence of the external cause; Y99.8 Other external cause status; Z79.84 Long term (current) use of oral hypoglycemic drugs; Z88.0 Allergy status to penicillin; Z91.013 Allergy to seafood; Z88.6 Allergy status to analgesic agent
CPT/HCPCS: 36415; 80053; 81003; 82962; 85027; 86593; 86803; 93005; 93010

== ENCOUNTER 2018-12-30 04:54 | Emergency (ER) | payer OTHER ==
--- NOTE | 2018-12-30 05:10 | PDOC ---
History of Present Illness - General Stated Complaint: FOREIGN BODY BOTH EARS Time Seen by Provider: 12/30/18 05:08 Past History - Past Medical History Allergies/Adverse Reactions: Allergies Allergy/AdvReac Type Severity Reaction Status Date / Time Penicillins Allergy Severe Hives Verified 12/30/18 05:12 shellfish derived Allergy Severe Swelling Verified 12/30/18 05:12 ibuprofen Allergy Mild Hives Verified 12/30/18 05:12 Home Medications: Ambulatory Orders Acetaminophen 1 tablet PO Q4HWA PRN 12/19/18 Atorvastatin Ca [Lipitor] 40 mg PO HS 12/19/18 Esomeprazole Strontium 49.3 mg PO DAILY 12/19/18 Inulin/Chromium Picolinate [Fiber Gummies] 1 tablet PO DAILY 12/19/18 Metformin HCl [Glucophage] 1,000 mg PO BID 12/19/18 Multiple Vitamins 1 tablet PO DAILY 12/19/18 Naproxen [Naprosyn] 500 mg PO DAILY 12/19/18 Polyethylene Glycol 3350 [Miralax 255 gm Btl -] 1 packet PO DAILY 12/19/18 Anemia: No Asthma: No Cancer: No Cardiac Disorders: No CVA: No COPD: No CHF: No Dementia: No Diabetes: Yes (Metformin) GI Disorders: Yes (GERD - ) Disorders: No HTN: No Hypercholesterolemia: Yes Kidney Stones: No Liver Disease: No Seizures: No Thyroid Disease: No - Surgical History Abdominal Surgery: No Appendectomy: No Cardiac Surgery: No Cholecystectomy: No Lung Surgery: No Neurologic Surgery: No Orthopedic Surgery: No - Reproductive History Testicular Surgery: No - Psycho Social/Smoking Cessation Hx Smoking History: Current every day smoker Have you smoked in the past 12 months: Yes Number of Cigarettes Smoked Daily: 20 'Breaking Loose' booklet given: 12/19/18 Hx Alcohol Use: No Drug/Substance Use Hx: Yes Substance Use Type: Cocaine, Marijuana Hx Substance Use Treatment: Yes (RENAY Pelaez) Medical Decision Making - Medical Decision Making 12/30/18 05:37 48yo M hx T2DM, HLD, gout, GERD, MDD, former cocaine and MJ abuse BIBA from [facility] with decreased hearing 2/2 impacted silicone ear plug pieces in b/l ears, pt made multiple attempts to remove with pen cap, resulting in tiny pieces being removed. Multiple similar issues in past requiring ENT removal of pieces. No pain, fever, itching, bleeding, pus drainage, headache, N/V, or other complaints. Hemodynamically stable, afebrile, large piece and multiple small pieces of soft dough-like silicone ear plugs in b/l ears, diminished hearing in b/l ears. [facility] called. No ENT at [facility]. [facility] does not allow pt to leave for outpatient appointments, only ED visits with [facility] doctor approval, unknown if ENT could go to [facility]. -Remove foreign body - 12/30/18 06:24 Parts of ear plugs removed from both ears by Dr Rose with ENT removal kit, but still some remains. Minimal bleeding present from R ear after procedure. Hearing improved in both ears. Will dc home with ENT f/u for further evaluation and management. Return precautions given. Pt understands all dc instructions and all questions were answered. Spoke with [facility] - informed of d/c back and next steps. 12/30/18 06:59 Discharge - Discharge Information Problems reviewed: Yes Clinical Impression/Diagnosis: Foreign body in ear, bilateral Condition: Improved Disposition: LONG-TERM FACILITY - Admission No - Follow up/Referral Referrals: Singh Camarillo MD [Staff Physician] - - Patient Discharge Instructions Patient Printed Discharge Instructions: DI for Removal of Foreign Body From Ear Additional Instructions: You have been seen in the Emergency Department for ear plugs stuck in your ears. We have removed some of the ear plugs making your hearing better, but there is still some ear plug left behind in both ears. You will need an ENT Specialist (Ear, Nose, Throat) to remove the remaining material. We have provided a referral for an ENT Specialist - follow-up outpatient with him in the next 72 hours or return to the ED Tuesday during the day for ENT management. Return to the ED immediately if you experience worsening pain, worsening hearing loss, fever, dizziness, or any other new or worsening symptom. - Post Discharge Activity
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
[2018-12-30 06:43] VITALS: BP 124/84; PULSE 65; TEMP 97.9; BMI 33.3
== END 2018-12-30 07:00 | disposition other institution (70) ==
LOC: JER 04:54
PROC: 09C47ZZ Extirpation of Matter from Left External Auditory Canal, Via Natural or Artificial Opening (ICD-10-PCS; principal; 2018-12-30)
PROC: 09C37ZZ Extirpation of Matter from Right External Auditory Canal, Via Natural or Artificial Opening (ICD-10-PCS; 2018-12-30)
DX: T16.2XXA Foreign body in left ear, initial encounter (principal); T16.1XXA Foreign body in right ear, initial encounter; X58.XXXA Exposure to other specified factors, initial encounter; Y93.89 Activity, other specified; Y92.238 Other place in hospital as the place of occurrence of the external cause; Y99.8 Other external cause status; Z88.0 Allergy status to penicillin; Z91.013 Allergy to seafood; Z88.6 Allergy status to analgesic agent; E11.9 Type 2 diabetes mellitus without complications; Z79.84 Long term (current) use of oral hypoglycemic drugs; M10.9 Gout, unspecified; E78.5 Hyperlipidemia, unspecified; F32.9 Major depressive disorder, single episode, unspecified; F14.11 Cocaine abuse, in remission; F12.11 Cannabis abuse, in remission
CPT/HCPCS: 69200; 99282-25

== ENCOUNTER 2021-11-02 09:42 | Inpatient (IN) | payer OTHER ==
[2021-11-02 10:15] VITALS: RESP 18; BMI 32.8
[2021-11-02] MEDS ORDERED: LOPERAMIDE HCL 2 MG CAPSULE PO PRN (11:29)
[2021-11-02] MEDS ORDERED: ACETAMINOPHEN 325 MG TABLET (FP) PO PRN (11:29)
[2021-11-02] MEDS ORDERED: MAGNESIUM CITRATE 300 ML BOTTLE PO PRN (11:29)
[2021-11-02] MEDS ORDERED: MAG HYDROX/AL HYDROX/SIMETH 30 ML UNIT-DOSE CUP PO PRN (11:29)
[2021-11-02] MEDS ORDERED: IBUPROFEN 400 MG TABLET (FP) PO PRN (11:29)
[2021-11-02] MEDS ORDERED: P-EPHED 60MG/TRIPROLIDI 2.5MG TABLET PO PRN (11:29)
[2021-11-02] MEDS ORDERED: guaiFENesin 200 MG/10 ML 10 ML UNIT-DOSE CUPS PO PRN (11:29)
[2021-11-02] MEDS ORDERED: NICOTINE 10 MG CARTRIDGE (INHALER) IH PRN (11:29)
[2021-11-02] MEDS ORDERED: MAGNESIUM HYDROX 2400MG/30ML ORAL SUSPENSION 30 ML CUP PO PRN (11:29)
[2021-11-02 13:14] LABS: HEMATOCRIT 46.1 % (35.4-49); HEMOGLOBIN 15.5 GM/dL (11.7-16.9); MCH 29.6 pg (25.7-33.7); MCHC 33.6 g/dl (32.0-35.9); MEAN CELL VOLUME 87.9 fl (80-96); MEAN PLT VOLUME 7.6 fl (7.5-11.1); PLATELET COUNT 270 10^3/uL (134-434); RBC 5.24 M/mm3 (4.00-5.60); RDW 14.3 % (11.9-15.9); WHITE BLOOD COUNT 10.4 K/mm3 (4.0-10.0)
[2021-11-02 13:19] LABS: ALBUMIN 3.4 g/dl (3.4-5.0); CALCIUM 9.2 mg/dL (8.5-10.1)
[2021-11-02 13:20] LABS: BLOOD UREA NITROGEN 12.4 mg/dL (7-18)
[2021-11-02 13:24] LABS: BILIRUBIN,TOTAL 0.6 mg/dL (0.2-1); TOT PROT 6.8 g/dl (6.4-8.2)
[2021-11-02] MEDS ORDERED: NICOTINE 7 MG/24 HOURS TOPICAL PATCH TD SCH (13:45)
[2021-11-02 13:50] LABS: SYPHILIS W/ RPR CONF NON-REACTIVE (NONREACTIVE)
[2021-11-02] MEDS: hydrOXYzine PAMOATE 25 MG CAPSULE (FP) PO SCH ×3 (17:26→21:29)
[2021-11-02] MEDS: PRENATAL VITAMINS W/ FOLIC ACID TABLET (FP) PO SCH (17:26)
[2021-11-02] MEDS: THIAMINE HCL 100 MG TABLET (FP) PO SCH (21:29)
[2021-11-02] MEDS ORDERED: MELATONIN 5 MG TABLETS PO SCH (22:00)
[2021-11-03] MEDS: hydrOXYzine PAMOATE 25 MG CAPSULE (FP) PO SCH (06:37)
[2021-11-03] MEDS ORDERED: hydrOXYzine PAMOATE 25 MG CAPSULE (FP) PO PRN (09:39)
[2021-11-03] MEDS: PRENATAL VITAMINS W/ FOLIC ACID TABLET (FP) PO SCH (10:01)
[2021-11-03] MEDS: THIAMINE HCL 100 MG TABLET (FP) PO SCH (21:10)
[2021-11-04] MEDS: PRENATAL VITAMINS W/ FOLIC ACID TABLET (FP) PO SCH (09:36)
[2021-11-04 11:30] LABS: PH,URINE 6.5 (5.0-8.0); URINE APPEARANCE CLEAR; URINE BILIRUBIN NEGATIVE (NEGATIVE); URINE COLOR YELLOW; URINE GLUCOSE (UA) NEGATIVE (NEGATIVE); URINE KETONE NEGATIVE (NEGATIVE); URINE LEUK ESTERASE NEGATIVE (NEGATIVE); URINE NITRITE NEGATIVE (NEGATIVE); URINE PROTEIN NEGATIVE (NEGATIVE); URINE UROBILINOGEN 0.2 mg/dL (0.2-1.0)
[2021-11-04 11:38] LABS: TRIGLYCERIDES 136 mg/dL (0-150)
[2021-11-04 11:39] LABS: CHOLESTEROL 116 mg/dL (50-200); LDL CHOLESTEROL (ONLY SJRH) 66 mg/dL (5-100)
[2021-11-04 11:41] LABS: HDL CHOLESTEROL 46 mg/dL (40-60)
[2021-11-04 12:26] LABS: HIV INTERPRETATION NEGATIVE (NEGATIVE)
[2021-11-04] MEDS: THIAMINE HCL 100 MG TABLET (FP) PO SCH (21:16)
[2021-11-05] MEDS: PRENATAL VITAMINS W/ FOLIC ACID TABLET (FP) PO SCH (10:01)
[2021-11-05] MEDS: THIAMINE HCL 100 MG TABLET (FP) PO SCH (21:24)
[2021-11-05] MEDS: MELATONIN 5 MG TABLETS PO PRN (21:24)
[2021-11-06] MEDS: PRENATAL VITAMINS W/ FOLIC ACID TABLET (FP) PO SCH (10:03)
[2021-11-06] MEDS: THIAMINE HCL 100 MG TABLET (FP) PO SCH (21:11)
[2021-11-06] MEDS: MELATONIN 5 MG TABLETS PO PRN (21:11)
[2021-11-07] MEDS: PRENATAL VITAMINS W/ FOLIC ACID TABLET (FP) PO SCH (10:24)
[2021-11-07] MEDS: THIAMINE HCL 100 MG TABLET (FP) PO SCH (21:29)
[2021-11-07] MEDS: MELATONIN 5 MG TABLETS PO PRN (21:29)
[2021-11-08] MEDS: PRENATAL VITAMINS W/ FOLIC ACID TABLET (FP) PO SCH (09:57)
[2021-11-08] MEDS: MELATONIN 5 MG TABLETS PO PRN (21:15)
[2021-11-08] MEDS: THIAMINE HCL 100 MG TABLET (FP) PO SCH (21:15)
[2021-11-09] MEDS: PRENATAL VITAMINS W/ FOLIC ACID TABLET (FP) PO SCH (10:10)
[2021-11-09] MEDS: THIAMINE HCL 100 MG TABLET (FP) PO SCH (21:27)
[2021-11-09] MEDS: MELATONIN 5 MG TABLETS PO PRN (21:27)
[2021-11-10] MEDS: PRENATAL VITAMINS W/ FOLIC ACID TABLET (FP) PO SCH (09:56)
[2021-11-10] MEDS: MELATONIN 5 MG TABLETS PO PRN (21:21)
[2021-11-10] MEDS: THIAMINE HCL 100 MG TABLET (FP) PO SCH (21:21)
[2021-11-11] MEDS ORDERED: metFORMIN HCL 500 MG TABLET (FP) PO SCH (07:00)
[2021-11-11] MEDS ORDERED: PATIENT'S OWN MEDICATION (NON-FORMULARY) (Metformin Hcl [Glucophage] 1,000 MG Tablet) PO SCH (07:30)
[2021-11-11] MEDS: PRENATAL VITAMINS W/ FOLIC ACID TABLET (FP) PO SCH (09:59)
[2021-11-11] MEDS: THIAMINE HCL 100 MG TABLET (FP) PO SCH (21:20)
[2021-11-11] MEDS: MELATONIN 5 MG TABLETS PO PRN (21:21)
[2021-11-12] MEDS: metFORMIN HCL 500 MG TABLET (FP) PO SCH (06:16)
[2021-11-12] MEDS: PRENATAL VITAMINS W/ FOLIC ACID TABLET (FP) PO SCH (09:55)
[2021-11-12] MEDS: THIAMINE HCL 100 MG TABLET (FP) PO SCH (21:19)
[2021-11-12] MEDS: MELATONIN 5 MG TABLETS PO PRN (21:19)
[2021-11-13] MEDS: metFORMIN HCL 500 MG TABLET (FP) PO SCH (06:11)
[2021-11-13] MEDS ORDERED: COLLOIDAL OATMEAL 1 BAR EACH TP PRN (09:12)
[2021-11-13] MEDS: PRENATAL VITAMINS W/ FOLIC ACID TABLET (FP) PO SCH (10:00)
[2021-11-13] MEDS: SIMETHICONE 80 MG TAB.CHEW (FP) PO PRN (13:01)
[2021-11-13] MEDS: MELATONIN 5 MG TABLETS PO PRN (21:18)
[2021-11-13] MEDS: THIAMINE HCL 100 MG TABLET (FP) PO SCH (21:19)
[2021-11-14] MEDS: metFORMIN HCL 500 MG TABLET (FP) PO SCH (06:11)
[2021-11-14] MEDS: PRENATAL VITAMINS W/ FOLIC ACID TABLET (FP) PO SCH (10:01)
[2021-11-14] MEDS: SIMETHICONE 80 MG TAB.CHEW (FP) PO PRN ×2 (10:02→14:02)
[2021-11-14] MEDS: THIAMINE HCL 100 MG TABLET (FP) PO SCH (21:47)
[2021-11-14] MEDS: MELATONIN 5 MG TABLETS PO PRN (21:47)
[2021-11-15] MEDS: metFORMIN HCL 500 MG TABLET (FP) PO SCH (06:02)
[2021-11-15] MEDS: PRENATAL VITAMINS W/ FOLIC ACID TABLET (FP) PO SCH (09:58)
[2021-11-15] MEDS: SIMETHICONE 80 MG TAB.CHEW (FP) PO PRN ×2 (09:59→21:43)
[2021-11-15] MEDS: MELATONIN 5 MG TABLETS PO PRN (21:42)
[2021-11-15] MEDS: THIAMINE HCL 100 MG TABLET (FP) PO SCH (21:42)
[2021-11-16] MEDS: metFORMIN HCL 500 MG TABLET (FP) PO SCH (06:34)
[2021-11-16] MEDS: SIMETHICONE 80 MG TAB.CHEW (FP) PO PRN (10:03)
[2021-11-16] MEDS: PRENATAL VITAMINS W/ FOLIC ACID TABLET (FP) PO SCH (10:03)
[2021-11-16] MEDS: MELATONIN 5 MG TABLETS PO PRN (21:33)
[2021-11-16] MEDS: THIAMINE HCL 100 MG TABLET (FP) PO SCH (21:33)
[2021-11-17] MEDS: metFORMIN HCL 500 MG TABLET (FP) PO SCH (07:13)
[2021-11-17] MEDS: PRENATAL VITAMINS W/ FOLIC ACID TABLET (FP) PO SCH (09:32)
[2021-11-17] MEDS: MELATONIN 5 MG TABLETS PO PRN (21:15)
[2021-11-17] MEDS: THIAMINE HCL 100 MG TABLET (FP) PO SCH (21:16)
[2021-11-18] MEDS: metFORMIN HCL 500 MG TABLET (FP) PO SCH (06:03)
[2021-11-18] MEDS: PRENATAL VITAMINS W/ FOLIC ACID TABLET (FP) PO SCH (09:46)
[2021-11-18] MEDS: MELATONIN 5 MG TABLETS PO PRN (21:08)
[2021-11-18] MEDS: THIAMINE HCL 100 MG TABLET (FP) PO SCH (21:08)
[2021-11-19] MEDS: metFORMIN HCL 500 MG TABLET (FP) PO SCH (06:03)
[2021-11-19 07:07] VITALS: BP 136/80; PULSE 68; TEMP 98
== END 2021-11-19 06:36 | disposition home or self-care (01) | DRG 772 ==
LOC: SUATTDRO 09:42 → YASAS 09:42 → Y5N 15:41
PROVIDERS: ADMIT Allergy & Immunology; ATTEND Psychiatry & Neurology Pain Medicine
PROC: HZ42ZZZ Group Counseling for Substance Abuse Treatment, Cognitive-Behavioral (ICD-10-PCS; principal; 2021-11-02)
DX: F10.20 Alcohol dependence, uncomplicated (principal); F14.20 Cocaine dependence, uncomplicated; F12.20 Cannabis dependence, uncomplicated; F17.210 Nicotine dependence, cigarettes, uncomplicated; F32.A Depression, unspecified; K21.9 Gastro-esophageal reflux disease without esophagitis; E11.9 Type 2 diabetes mellitus without complications; Z79.84 Long term (current) use of oral hypoglycemic drugs; Z88.0 Allergy status to penicillin; Z88.6 Allergy status to analgesic agent; Z88.8 Allergy status to other drugs, medicaments and biological substances
CPT/HCPCS: 36415; 80053; 80061; 81003; 82962; 83036; 85027; 86780; 86803; 87389; 87811; C9803-CS; U0003; U0005